=== PATIENT | male | born 1965 | race Caucasian/White ===

== ENCOUNTER 2019-04-06 17:33 | Emergency (ER) | payer OTHER ==
[2019-04-06 17:42] VITALS: BP 125/80; PULSE 72; TEMP 97.8; BMI 23.6
--- NOTE | 2019-04-06 18:43 | PDOC ---
History of Present Illness - General Chief Complaint: Injury Stated Complaint: RIGHT HAND INJURT Time Seen by Provider: 04/06/19 18:09 History Source: Patient Exam Limitations: No Limitations Past History - Past Medical History Allergies/Adverse Reactions: Allergies Allergy/AdvReac Type Severity Reaction Status Date / Time No Known Allergies Allergy Verified 04/06/19 17:38 Home Medications: Ambulatory Orders Buspirone HCl [Buspar -] 15 mg PO HS 04/06/19 Gabapentin 300 mg PO TID 04/06/19 Mirtazapine [Remeron -] 15 mg PO HS 04/06/19 Quetiapine Fumarate [Seroquel] 300 mg PO HS 04/06/19 Asthma: No Cardiac Disorders: No COPD: No Diabetes: No GI Disorders: No HTN: No Seizures: No - Surgical History Orthopedic Surgery: No - Reproductive History Testicular Surgery: No - Psycho Social/Smoking Cessation Hx Smoking History: Current every day smoker Have you smoked in the past 12 months: Yes Number of Cigarettes Smoked Daily: 10 Information on smoking cessation initiated: Yes Hx Alcohol Use: Yes Drug/Substance Use Hx: Yes *Physical Exam - Vital Signs Last Vital Signs Temp Pulse Resp BP Pulse Ox 97.8 F 72 18 125/80 94 L 04/06/19 17:40 04/06/19 17:40 04/06/19 17:40 04/06/19 17:40 04/06/19 17:40 - Physical Exam General Appearance: No: Apparent Distress, Alcohol on Breath HEENT: positive: Other (no head/neck trauma) Respiratory/Chest: positive: Lungs Clear, Normal Breath Sounds. negative: Respiratory Distress Cardiovascular: positive: Regular Rhythm, Regular Rate, S1, S2. negative: Murmur Gastrointestinal/Abdominal: positive: Normal Bowel Sounds, Soft. negative: Tender, Distended, Guarding, Rebound Extremity: positive: Other (+swelling and TTP along R 5th MCP, RUE neurovascularly intact) Integumentary: positive: Rash (blanching maculopapular rash along neck and along L shoulder, no vesicles, does not follow dermatome pattern, no pustules). negative: Cyanotic, Erythema, Jaundice, Mottled, Moist, Hives, Petechiae, Ecchymosis, Bruising Neurologic: positive: Alert Procedures - Splinting Splint Location: Right: Hand Pre-Proc Neuro Vasc Exam: normal Pre-Made Type: velcro Hand-Made Type: orthoglass Splint Type: Yes: Ulnar Post-Proc Neuro Vasc Exam: normal Dwight Bandage: yes Sling: No Complications: No ED Treatment Course - RADIOLOGY Radiology Studies Ordered: Category Date Time Status CHEST PA & LAT [RAD] Stat Radiology 04/06/19 18:18 Ordered HAND- RIGHT [RAD] Stat Radiology 04/06/19 18:18 Ordered Medical Decision Making - Medical Decision Making 53 y/o M with hx of asthma, substance abuse (crack cocaine, heroine, alcohol; last used yesterday; denies IVDU) was sent from [address] [place] [address] for R hand injury. Patient states he blacked out yesterday from drinking large amount of alcohol and got R hand injury. Does not remember how he got the injury. Denies head/ neck other injuries. Also mentions intermittent cough with phlegm x 2 weeks. Also concerned about rash along L shoulder and neck which he just noticed today ; states rash is itchy. Denies fever, sob, cp, abd pain, n/v/d, headache Rash - could be contact dermatitis? does not appear as urticaria, zoster or bacterial rash Recommended to try 1% hydrocortisone cream Cough x 2 weeks Lungs clear, afebrile Plan: CXR to r/o PNA R hand injury Plan: Xray to r/o fracture 04/06/19 18:39 R hand xray read as negative by radiologist, mentions old deformity at fifth metacarpal However give patient has swelling and tenderness along same site, placed in ulnar gutter splint CXR shows minimal atelectatic changes along left base Does not appear completely clear on my review; no opacity noted D/W Dr. Cross - recommended course of Azithromycin Patient accepted back to [facility]; d/w Dr. Estrella 04/06/19 19:14 Discharge - Discharge Information Problems reviewed: Yes Clinical Impression/Diagnosis: Rash, Cough Hand injury Qualifiers: Encounter type: initial encounter Laterality: right Qualified Code(s): S69.91XA - Unspecified injury of right wrist, hand and finger(s), initial encounter Condition: Stable Disposition: HOME - Admission No - Additional Discharge Information Prescription Drug Monitoring Program (I-STOP) results: I-STOP not reviewed - Follow up/Referral Referrals: Eligio Mcnair DO [Staff Physician] - 2 Days - Patient Discharge Instructions Patient Printed Discharge Instructions: DI for Boxer's Fracture Additional Instructions: Thank you for choosing [facility]. It was a pleasure taking care of you. It is possible your fracture on your right hand is old. In case it is not, the site was splinted. Please keep splint dry. Follow-up with orthopedics for further evaluation Apply 1% hydrocortisone cream twice a day along site of rash Take Azithromycin (500 mg x 1 day, 250 mg x 4 days) for your cough Return to the Emergency Department if your symptoms worsen or persist or have other concerning symptoms. - Post Discharge Activity
--- NOTE | 2019-04-06 23:20 | PDOC ---
*Physical Exam - Vital Signs Last Vital Signs Temp Pulse Resp BP Pulse Ox 97.8 F 72 18 125/80 94 L 04/06/19 17:40 04/06/19 17:40 04/06/19 17:40 04/06/19 17:40 04/06/19 17:40 Medical Decision Making - Medical Decision Making 04/06/19 23:20 Case reviewed, agree with assessment and plan Discharge - Discharge Information Problems reviewed: Yes Clinical Impression/Diagnosis: Rash, Cough Hand injury Qualifiers: Encounter type: initial encounter Laterality: right Qualified Code(s): S69.91XA - Unspecified injury of right wrist, hand and finger(s), initial encounter Condition: Stable Disposition: HOME - Follow up/Referral Referrals: Eligio Mcnair DO [Staff Physician] - 2 Days - Patient Discharge Instructions Patient Printed Discharge Instructions: DI for Boxer's Fracture Additional Instructions: Thank you for choosing [facility]. It was a pleasure taking care of you. It is possible your fracture on your right hand is old. In case it is not, the site was splinted. Please keep splint dry. Follow-up with orthopedics for further evaluation Apply 1% hydrocortisone cream twice a day along site of rash Take Azithromycin (500 mg x 1 day, 250 mg x 4 days) for your cough Return to the Emergency Department if your symptoms worsen or persist or have other concerning symptoms. - Post Discharge Activity
--- NOTE | 2019-04-07 10:04 | CONSULT ---
[facility] Psychiatric Consult - Data Date of interview: 04/07/19 Admission source: [facility] Substance Abuse History: Smoking Cessation. Smoking history: Current every day smoker. Have you smoked in the past 12 months: Yes. Aproximately how many cigarettes per day: 10. Hx Chewing Tobacco Use: No. Initiated information on smoking cessation: Yes. 'Breaking Loose' booklet given: 04/06/19. - Substances abused. Heroin. Substance route: Inhalation. Frequency: Daily. Amount used: 5 BUNDLES A DAY. Age of first use: 19. Date of last use: . Alcohol. Substance route: Oral. Frequency: Daily. Amount used: 24- BEERS. Age of first use: 19. Date of last use: 04/05/19. Crack. Substance route: Smoking. Frequency: Daily. Amount used: $700. Age of first use: 22. Date of last use: 04/05/19
== END 2019-04-06 19:40 | disposition home or self-care (01) ==
LOC: JER 17:33
PROC: 2W3CX1Z Immobilization of Right Lower Arm using Splint (ICD-10-PCS; principal; 2019-04-06)
DX: S69.81XA Other specified injuries of right wrist, hand and finger(s), initial encounter (principal); X58.XXXA Exposure to other specified factors, initial encounter; Y93.89 Activity, other specified; Y92.89 Other specified places as the place of occurrence of the external cause; Y99.8 Other external cause status; R05 Cough; R21 Rash and other nonspecific skin eruption; F10.10 Alcohol abuse, uncomplicated; F11.10 Opioid abuse, uncomplicated; F14.10 Cocaine abuse, uncomplicated
CPT/HCPCS: 29126; 71046-TC-FY; 73130-TC-RT-FY; 99283-25